=== PATIENT | female | born 1980 | race American Indian/Alaskan Native ===

== ENCOUNTER 2016-11-19 18:12 | Emergency (ER) | payer OTHER ==
[2016-11-19] MEDS ORDERED: DECADRON IV ONE (18:27)
[2016-11-19] MEDS ORDERED: REGLAN IV ONE (18:27)
[2016-11-19] MEDS ORDERED: BENADRYL IV ONE (18:27)
[2016-11-19 18:43] VITALS: BP 130/90
--- NOTE | 2016-11-19 18:55 | Emergency Department Report ---
HPI - General Chief Complaint: Allergic Reaction Time Seen by Provider: 11/19/16 18:52 ED Past Medical Hx - Past Medical History Additional medical history: fibroids, ovarian cysts, allergies - Surgical History Additional Surgical History: hysterectomy 2012, fibroids and cyst removal 2008 - Social History Smoking Status: Unknown if ever smoked Substance Use Type: None - Medications Home Medications: Home Medications Medication Instructions Recorded Confirmed Last Taken Type Hyoscyamine Subl [Levsin Sl] 0.125 mg SL Q4HR PRN #7 tablet 05/19/14 Unknown Rx Promethazine [Phenergan] 25 mg PO Q6H PRN #10 tablet 05/19/14 Unknown Rx Prednisone [Prednisone 10 mg 10 mg PO .TAPER #1 tab.ds.pk 08/24/14 Unknown Rx (6-Day Pack, 21 Tabs)] Butalb/Acetamin/Caff 50-325-40 1 each PO Q4H PRN #20 tablet 10/31/14 Unknown Rx [Fioricet] Ciprofloxacin HCl [Ciprofloxacin 500 mg PO Q12H #14 tab 10/31/14 Unknown Rx TAB] Promethazine [Phenergan TAB] 25 mg PO Q6H PRN #10 tablet 10/31/14 Unknown Rx ED Review of Systems ROS: Stated complaint: ALLERGIC REACTION Other details as noted in HPI Physical Exam - Physical Exam Vital Signs: Vital Signs 11/19/16 18:41 Temperature 97.5 F L Pulse Rate 60 Respiratory 18 Rate Blood Pressure 130/90 O2 Sat by Pulse 100 Oximetry ED Course Vital Signs 11/19/16 18:41 Temperature 97.5 F L Pulse Rate 60 Respiratory 18 Rate Blood Pressure 130/90 O2 Sat by Pulse 100 Oximetry Critical care attestation.: If time is entered above; I have spent that time in minutes in the direct care of this critically ill patient, excluding procedure time. ED Disposition Condition: Stable Referrals: PRIMARY CARE, [Primary Care Provider] - 3-5 Days
--- NOTE | 2016-11-19 19:02 | Emergency Department Report ---
ED General Adult HPI - General Chief complaint: Allergic Reaction Stated complaint: ALLERGIC REACTION Time Seen by Provider: 11/19/16 18:52 Source: patient Mode of arrival: Ambulatory Limitations: No Limitations - History of Present Illness Initial comments: pt is a 36 y/o aaf with hx of nut allergies present for allergic reaction after ingesting mixed nuts this afternoon symptoms include itching excessive salavation, and anxiousness pt denies sob no wheezing no vickers, for fever no chills no syncope Onset/Timin -: hour(s) Location: face, mouth, upper extremity Radiation: neck, extremity, distal Severity scale (0 -10): 4 Quality: other (itching /swelling ) Consistency: constant Improves with: none Worsens with: none Associated Symptoms: malaise, nausea/vomiting, rash, shortness of breath. denies: confusion, chest pain, cough, diaphoresis, fever/chills, headaches, loss of appetite, seizure, weakness Treatments Prior to Arrival: none - Related Data Previous Rx's Medication Instructions Recorded Last Taken Type Hyoscyamine Subl [Levsin Sl] 0.125 mg SL Q4HR PRN #7 tablet 05/19/14 Unknown Rx Promethazine [Phenergan] 25 mg PO Q6H PRN #10 tablet 05/19/14 Unknown Rx Prednisone [Prednisone 10 mg 10 mg PO .TAPER #1 tab.ds.pk 08/24/14 Unknown Rx (6-Day Pack, 21 Tabs)] Ciprofloxacin HCl [Ciprofloxacin 500 mg PO Q12H #14 tab 10/31/14 Unknown Rx TAB] Promethazine [Phenergan TAB] 25 mg PO Q6H PRN #10 tablet 10/31/14 Unknown Rx Butalb/Acetamin/Caff 50-325-40 1 each PO Q4H PRN #20 tablet 11/19/16 Unknown Rx [Fioricet] Dexamethasone [Decadron] 4 mg PO Q12H #10 tablet 11/19/16 Unknown Rx EPINEPHrine [Epipen 2-Dirk] 0.3 mg IJ 2XWHS PRN #1 auto.injct 11/19/16 Unknown Rx Metoclopramide [Reglan] 10 mg PO ACHS #28 tablet 11/19/16 Unknown Rx diphenhydrAMINE [Benadryl CAP] 25 mg PO Q6HR #28 capsule 11/19/16 Unknown Rx Allergies Allergy/AdvReac Type Severity Reaction Status Date / Time Blount And Derivatives Allergy Unknown Verified 08/23/14 19:36 oak Allergy Unknown Verified 08/23/14 19:36 strawberry Allergy Anaphylaxis Verified 08/23/14 19:36 mildew Allergy Unknown Uncoded 08/23/14 19:36 nut Allergy Unknown Uncoded 08/23/14 19:36 pecan Allergy Unknown Uncoded 08/23/14 19:36 ED Review of Systems ROS: Stated complaint: ALLERGIC REACTION Other details as noted in HPI Constitutional: denies: chills, fever Eyes: denies: eye pain, eye discharge, vision change ENT: throat pain, congestion. denies: dental pain, hearing loss, epistaxis Respiratory: shortness of breath. denies: cough, orthopnea, wheezing Cardiovascular: denies: chest pain, palpitations, dyspnea on exertion, orthopnea , edema, syncope, paroxysmal nocturnal dyspnea Endocrine: flushing Gastrointestinal: nausea, vomiting Genitourinary: denies: urgency, dysuria, discharge Musculoskeletal: denies: back pain, joint swelling, arthralgia Skin: rash, pruritus Neurological: denies: headache, weakness, paresthesias Psychiatric: denies: anxiety, depression Hematological/Lymphatic: denies: easy bleeding, easy bruising ED Past Medical Hx - Past Medical History Additional medical history: fibroids, ovarian cysts, allergies/ nuts - Surgical History Additional Surgical History: hysterectomy 2012, fibroids and cyst removal 2008 - Social History Smoking Status: Unknown if ever smoked Substance Use Type: None - Medications Home Medications: Home Medications Medication Instructions Recorded Confirmed Last Taken Type Hyoscyamine Subl [Levsin Sl] 0.125 mg SL Q4HR PRN #7 tablet 05/19/14 Unknown Rx Promethazine [Phenergan] 25 mg PO Q6H PRN #10 tablet 05/19/14 Unknown Rx Prednisone [Prednisone 10 mg 10 mg PO .TAPER #1 tab.ds.pk 08/24/14 Unknown Rx (6-Day Pack, 21 Tabs)] Ciprofloxacin HCl [Ciprofloxacin 500 mg PO Q12H #14 tab 10/31/14 Unknown Rx TAB] Promethazine [Phenergan TAB] 25 mg PO Q6H PRN #10 tablet 10/31/14 Unknown Rx Butalb/Acetamin/Caff 50-325-40 1 each PO Q4H PRN #20 tablet 11/19/16 Unknown Rx [Fioricet] Dexamethasone [Decadron] 4 mg PO Q12H #10 tablet 11/19/16 Unknown Rx EPINEPHrine [Epipen 2-Dirk] 0.3 mg IJ 2XWHS PRN #1 auto.injct 11/19/16 Unknown Rx Metoclopramide [Reglan] 10 mg PO ACHS #28 tablet 11/19/16 Unknown Rx diphenhydrAMINE [Benadryl CAP] 25 mg PO Q6HR #28 capsule 11/19/16 Unknown Rx ED Physical Exam - General Limitations: No Limitations General appearance: alert, in no apparent distress - Head Head exam: Present: atraumatic, normocephalic - Eye Eye exam: Present: normal appearance, PERRL, EOMI Pupils: Present: normal accommodation - ENT ENT exam: Present: mucous membranes moist, TM's normal bilaterally, normal external ear exam - Expanded ENT Exam Expanded Mouth exam: Present: tongue normal, tongue elevation. Absent: trismus Teeth exam: Present: normal inspection Throat exam: Positive: normal inspection, tonsillar erythema. Negative: tonsillomegaly, tonsillar exudate, R peritonsillar mass, L peritonsillar mass - Neck Neck exam: Present: normal inspection, full ROM. Absent: tenderness, lymphadenopathy, thyromegaly - Respiratory Respiratory exam: Present: normal lung sounds bilaterally. Absent: respiratory distress, wheezes, rhonchi, stridor, chest wall tenderness - Cardiovascular Cardiovascular Exam: Present: regular rate, normal rhythm. Absent: systolic murmur, diastolic murmur, rubs, gallop - GI/Abdominal GI/Abdominal exam: Present: soft, normal bowel sounds. Absent: tenderness, guarding, rebound, organomegaly, mass, bruit - Rectal Rectal exam: Present: deferred - Extremities Exam Extremities exam: Present: normal inspection, full ROM, normal capillary refill. Absent: tenderness, pedal edema, joint swelling, calf tenderness - Back Exam Back exam: Present: normal inspection, full ROM. Absent: tenderness, CVA tenderness (R), CVA tenderness (L), rash noted - Neurological Exam Neurological exam: Present: alert, oriented X3, CN II-XII intact, normal gait, reflexes normal. Absent: motor sensory deficit - Expanded Neurological Exam Expanded Patient oriented to: Present: person, place, time Speech: Present: fluid speech Cranial nerves: EOM's Intact: Normal, Gag Reflex: Normal, Tongue Deviation: Normal, Facial Sensation: Normal Motor strength exam: RUE: 5, LUE: 5, RLE: 5, LLE: 5 Best Eye Response (Yuliana): (4) open spontaneously Best Motor Response (Yuliana): (6) obeys commands Best Verbal Response (Yuliana): (5) oriented Jasper Total: 15 - Psychiatric Psychiatric exam: Present: normal affect, normal mood - Skin Skin exam: Present: warm, dry, intact, normal color. Absent: rash, cyanosis, diaphoretic, erythema, urticaria, vesicles, petechiae, pallor, abrasion, ecchymosis ED Course Vital Signs 11/19/16 18:41 Temperature 97.5 F L Pulse Rate 60 Respiratory 18 Rate Blood Pressure 130/90 O2 Sat by Pulse 100 Oximetry ED Medical Decision Making - Medical Decision Making pt is a 36 y/o aaf with hx of nut allergies that presented to ecc for ithching and sob after eating mix nuts 2 hrs ago , pt did not take benadryl or epipen prior to presentation to ed , initially complained of itching sob n/v and execessive salavation , symptoms are resolved with decadron benadryl and reglan given in ecc, exam Pt appears well non toxic, pharynx: patent mild erythema no exudate no lesions uvula mildline no stridor no swelling lung clear bilat all lobes, pt denies itching no rash no hives , all symptoms resolved at this time, plan: dc to home with steroid taper, benadryl, reglan, epipen, directions to avoid nuts, and follow up with primary care doctor pt to home via pov and family member pt verbalized agreement and understanding with discharge plan. Critical care attestation.: If time is entered above; I have spent that time in minutes in the direct care of this critically ill patient, excluding procedure time. ED Disposition Clinical Impression: Allergic reaction Qualifiers: Encounter type: initial encounter Qualified Code(s): T78.40XA - Allergy, unspecified, initial encounter Disposition: DC-01 TO HOME OR SELFCARE Is pt being admited?: No Does the pt Need Aspirin: No Condition: Good Instructions: Food Allergy (ED), Allergies (ED), Epinephrine (Injection) Additional Instructions: refill migraine medication as prescribed Prescriptions: Butalb/Acetamin/Caff 50-325-40 [Fioricet] 1 each PO Q4H PRN #20 tablet PRN Reason: Headache Dexamethasone [Decadron] 4 mg PO Q12H #10 tablet diphenhydrAMINE [Benadryl CAP] 25 mg PO Q6HR #28 capsule EPINEPHrine [Epipen 2-Dirk] 0.3 mg IJ 2XWHS PRN #1 auto.injct PRN Reason: severe allergies Metoclopramide [Reglan] 10 mg PO ACHS #28 tablet Referrals: PRIMARY CARE, [Primary Care Provider] - 3-5 Days Forms: Work/School Release Form(ED) Time of Disposition: 19:18
[2016-11-19] MEDS ORDERED: ULTRAM PO ONE (19:12)
== END 2016-11-19 20:48 | disposition home or self-care (01) ==
LOC: ED 18:12
DX: T78.40XA Allergy, unspecified, initial encounter (principal); X58.XXXA Exposure to other specified factors, initial encounter; Y93.9 Activity, unspecified; Y92.9 Unspecified place or not applicable; Y99.9 Unspecified external cause status
CPT/HCPCS: 96374; 96375; 99282; J1100; J1200; J2765